=== PATIENT | female | born 1950 | race Caucasian/White ===

== ENCOUNTER 2023-02-23 00:07 | Emergency (ER) | payer MEDICARE, SELFPAY ==
[2023-02-23 00:08] VITALS: BP 180/89; PULSE 100; RESP 18; TEMP 36.7; O2SAT 99; BMI 38.9
--- NOTE | 2023-02-23 00:16 | EDS_ITS ---
HPI History of Present Illness Chief Complaint: General Illness Narrative Narrative: Patient presents with feeling like her whole skin is full of [id number]. This just started a few hours ago. She has had some nausea and vomiting a few days ago however that subsided she had some loose stools. After eating tonight she developed some of the symptoms and she has allergies to MSG and is wondering if this is was causing her symptoms. She has no fever or chills. She is denying any abdominal pain currently. She has no chest pain or shortness of breath. No headache or neck pain or neck stiffness. [facility] Medical History (Updated 02/23/23 @ 02:[address] Leandro Izquierdo MD) Back pain Depression Lump in throat Vertigo Home Medications hydroxyzine pamoate 25 mg capsule (Vistaril) 25 mg PO TID #20 caps 02/23/23 [Rx Last Taken Unknown] meclizine 25 mg tablet 25 mg PO TID PRN dizzy 02/23/23 [History Last Taken Unknown] ondansetron 4 mg disintegrating tablet 4 mg PO Q8H PRN PRN Nausea #10 tabs 02/23/23 [Rx Last Taken Unknown] tramadol 50 mg tablet 50 mg PO Q8H PRN Pain 02/23/23 [History Last Taken Unknown] Allergy/AdvReac Type Severity Reaction Status Date / Time monosodium glutamate [msg] Allergy Itching Verified 02/23/23 00:11 Social History Smoking Status: Former smoker ROS ROS ED ROS Narrative Past medical history: Reviewed Medications: Reviewed Social history: Noncontributory Review of systems: All systems negative except as indicated General: No fever Eyes: No visual changes ENT: No upper airway congestion, normal voice Neck: No neck pain Cardiovascular: No chest pain Respiratory: No shortness of breath or cough Gastrointestinal: As in HPI, nausea and vomiting, although this has resolved Genitourinary: No dysuria Musculoskeletal: Denies myalgias no difficulty with ambulation Skin: As in HPI but no rash. Neurological: No memory loss, confusion or any focal weakness paresthesias throughout her whole body. Psych: No recent behavioral changes Hematologic: No easy bleeding or easy bruising EXAM Physical Exam Narrative Exam Narrative: Physical exam General: Patient appears somewhat anxious but she does not appear in any significant distress Head: Normocephalic, Atraumatic Eyes: Conjunctiva not pale ENT: Moist mucous membranes Neck: Supple, Nontender, No lymphadenopathy Cardiovascular: Regular rate, Regular rhythm Respiratory: No distress, CTA bilaterally Abdomen: Soft, Nontender, Nondistended Back: Nontender, Normal Inspection. Negative for: CVA tenderness Extremities: Nontender, No edema Skin: Normal color, No rash Neurological: Alert, Normal Strength, Normal Sensation Const Vital Signs: 02/23/23 00:08 02/23/23 00:14 Temperature 98.0 F Temperature Source Temporal Pulse Rate 100 Respiratory Rate 18 Respiratory Effort Normal Non-Labored Respiratory Pattern Normal Blood Pressure 180/89 H Blood Pressure Mean 119 Pulse Ox 99 Oxygen Delivery Method Room Air MDM MDM MDM Narrative Medical decision making narrative: CBC and CMP are unremarkable. At this time patient has paresthesias and does not feel well, I thought about potassium problem she does have a slightly low po tassium which I will fix from the ED, she has nausea and vomiting and likely has a gastroenteritis, otherwise I thought about intra-abdominal catastrophes but patient has no abdominal pain therefore I do not believe she needs a CAT scan. She was given IV fluids. She did somewhat improved but still felt anxious after I talked to her she tells me she did run out of her Klonopin she did not take Klonopin daily and had no addiction therefore I do not believe I have to give her Klonopin for home I will give her Vistaril I did give her Ativan in the ED. She has had a woman custodial and we will discharge her there. Lab Data Labs: Laboratory Results - last 24 hr 02/23/23 02/23/23 00:25 00:25 WBC 8.8 RBC 4.70 Hgb 13.7 Hct 42.8 MCV 91.1 MCH 29.1 MCHC 32.0 RDW Std Deviation 45.5 H RDW Coeff of Helen 13.5 Plt Count 239 MPV 11.6 Immature Gran % (Auto) 0.600 Neut % (Auto) 64.4 Lymph % (Auto) 22.5 [place] % (Auto) 11.3 H Eos % (Auto) 0.6 Baso % (Auto) 0.6 Absolute Neuts (auto) 5.7 Absolute Lymphs (auto) 1.98 Nucleated RBC % 0 Sodium 136 Potassium 3.3 L Chloride 101 Carbon Dioxide 30.0 Anion Gap 5 BUN 9 Creatinine 1.03 H Estim Creat Clear Calc 39.64 Est GFR (MDRD) Af Amer 67 Est GFR (MDRD) Non-Af 56 L BUN/Creatinine Ratio 8.7 L Glucose 122 H Calcium 9.7 Total Bilirubin 0.40 AST 17 ALT 15 Alkaline Phosphatase 66 Total Protein 7.6 Albumin 3.5 Globulin 4.1 Albumin/Globulin Ratio 0.9 Discharge Plan Triage Chief Complaint: General Illness ED Provider: Leandro Izquierdo Dx/Rx/DC Orders Clinical Impression: Hypokalemia, Nausea & vomiting, Anxiety Instructions: ED Anxiety Reaction, ED Vomiting (Adult) Prescriptions: New hydroxyzine pamoate [Vistaril] 25 mg capsule 25 mg PO TID Qty: 20 0RF ondansetron 4 mg tablet,disintegrating 4 mg PO Q8H PRN PRN (Reason: Nausea) Qty: 10 0RF No Action tramadol 50 mg Tablet 50 mg PO Q8H PRN (Reason: Pain) meclizine 25 mg Tablet 25 mg PO TID PRN (Reason: dizzy) Primary Care Provider: Maria Luisa Kendrick Referrals: Maria Luisa eKndrick, DO [Primary Care Provider] - 3-5 Days NOT,DEFINED [Non-Staff] - Disposition Disposition: Home, Self Care
[2023-02-23] MEDS: 0.9% Normal Saline 1,000 ML 1000 ML IV (00:25)
[2023-02-23 00:31] LABS: Absolute Lymphocyte Count 1.98 X10^3/uL (0.83-4.51); Absolute Neutrophil Count 5.7 X10^3/uL (2.0-7.7); Basophil# 0.05 X10^3/uL; Basophil% 0.6 % (0-1); Eosinophil# 0.05 X10^3/uL; Eosinophils% 0.6 % (0-5); Hematocrit 42.8 % (37-47); Hemoglobin 13.7 g/dL (12.0-15.0); Lymphocyte # 1.98 X10^3/ul (0.83-4.51); Lymphocyte % 22.5 % (19-41); Mean Corpuscular Hgb 29.1 pg (27.0-32.0); Mean Corpuscular Volume 91.1 fL (81-99); Mean Platelet Vol. 11.6 fl (6.2-12.0); Monocyte# 0.99 X10^3/uL; Monocyte% 11.3 % (0-10); NRBC Flagged by Analyzer 0 % (0-5); Neutrophil # 5.67 X10^3/uL (2.7-7.7); Neutrophil % 64.4 % (47-70); Platelet Count 239 K/mm3 (150-450); RBC Distribution Width CV 13.5 % (11.6-14.6); RBC Distribution Width SD 45.5 fl (35.1-43.9); White Blood Count 8.8 K/mm3 (4.4-11.0)
[2023-02-23] MEDS: Ondansetron 4 MG/2 ML Vial IV (00:31)
[2023-02-23 00:49] LABS: ALB/GLOB Ratio 0.9 RATIO (0.9-2.4); AST(SGOT) 17 U/L (15-37); Alanine Aminotransfer ALT/SGPT 15 U/L (13-56); Albumin, Serum 3.5 g/dL (3.2-5.0); Alkaline Phosphatase 66 U/L (45-117); Anion Gap 5 (5-15); BUN 9 mg/dL (7-18); BUN/Creat Ratio 8.7 RATIO (10-20); Calcium,Total 9.7 mg/dL (8.5-10.1); Chloride 101 mmol/L (98-107); Creatinine, Serum 1.03 mg/dL (0.55-1.02); EST Glomerular Filtration Rate 56 mL/min (>60); Est Glom Filt Rate - Afr Amer 67 mL/min (>60); Estimated Creatinine Clearance 39.64 ml/min; Globulin 4.1 g/dL (2.2-4.2); Glucose 122 mg/dL (74-106); Potassium 3.3 mmol/L (3.5-5.1); Protein, Total 7.6 g/dL (6.4-8.2); Sodium Level 136 mmol/L (136-145)
[2023-02-23 02:07] VITALS: BP 159/77; PULSE 80; RESP 16; O2SAT 99
[2023-02-23] MEDS: Potassium Chloride Oral Tablet 20 MEQ 40 MEQ PO (02:27)
[2023-02-23] MEDS: LORazepam 0.5 MG Tablet PO (02:28)
[2023-02-23 06:32] VITALS: BP 146/78; PULSE 84; RESP 16
== END 2023-02-23 06:33 | disposition home or self-care (01) ==
PROVIDERS: Emergency Provider Emergency Medicine; PCP Family Medicine; Visit Provider Emergency Medicine
DX: E87.6 Hypokalemia (principal); R11.2 Nausea with vomiting, unspecified; Z87.891 Personal history of nicotine dependence; F41.9 Anxiety disorder, unspecified; R20.2 Paresthesia of skin
CPT/HCPCS: 80053; 85025; 96361; 96374; 99283; J7030; A4216; J2405